=== PATIENT | female | born 1995 | race Two or more races ===

== ENCOUNTER 2023-01-30 14:00 | Inpatient (IN) | payer OTHER ==
[~2023-01-30] VITALS: Ht 160 cm; Wt 65.8 kg
[2023-02-18] MEDS ORDERED: PRENATAL TABLE1 EAC1 PO (00:36)
== END 2023-02-20 11:33 | disposition home or self-care (01) | DRG 807 ==
LOC: OB/GYN 02-08 14:00 → LDR 02-18 00:09 → OB/GYN 02-18 09:00
PROVIDERS: ADMIT Obstetrics & Gynecology Maternal & Fetal Medicine; ATTEND Obstetrics & Gynecology Maternal & Fetal Medicine
PROC: 10E0XZZ Delivery of Products of Conception, External Approach (ICD-10-PCS; principal; 2023-02-18)
PROC: 0KQM0ZZ Repair Perineum Muscle, Open Approach (ICD-10-PCS; 2023-02-18)
PROC: 0UQMXZZ Repair Vulva, External Approach (ICD-10-PCS; 2023-02-18)
PROC: 4A1HXCZ Monitoring of Products of Conception, Cardiac Rate, External Approach (ICD-10-PCS; 2023-02-18)
DX: O71.4 Obstetric high vaginal laceration alone (principal); Z37.0 Single live birth; O71.82 Other specified trauma to perineum and vulva; Z3A.41 41 weeks gestation of pregnancy; Z20.822 Contact with and (suspected) exposure to COVID-19

== ENCOUNTER 2023-02-09 10:35 | Outpatient (CLI) | payer OTHER | END 2023-02-09 11:37 | disposition home or self-care (01) | LOC: NST 10:35 | PROVIDERS: ATTEND Obstetrics & Gynecology | DX: Z34.83 Encounter for supervision of other normal pregnancy, third trimester (principal) ==

== ENCOUNTER 2023-02-13 14:02 | Outpatient (CLI) | payer OTHER | END 2023-02-13 15:00 | disposition home or self-care (01) | LOC: NST 14:02 | PROVIDERS: ATTEND Obstetrics & Gynecology | DX: Z34.83 Encounter for supervision of other normal pregnancy, third trimester (principal) ==

== ENCOUNTER 2025-07-02 13:15 | Inpatient (IN) | payer OTHER ==
[~2025-07-02] VITALS: Ht 160 cm; Wt 67.1 kg
[~2025-07-02 13:15] MED LIST: PRENATAL TABLE1 EAC1 PO
[2025-07-15 08:44] VITALS: BP 104/70
[2025-07-15] MEDS ORDERED: RINGERS SOLUTION,LACTATED 1,000 ML IV SCH (10:15)
[2025-07-15 10:43] LABS: URINE APPEARANCE Clear; URINE BILIRRUBIN Negative (NEGATIVE); URINE BLOOD Negative; URINE COLOR Dark Yellow; URINE GLUCOSE Negative (NEGATIVE); URINE KETONE Trace (NEGATIVE); URINE LEUKOCYTE Trace; URINE NITRATE Negative; URINE PROTEIN Trace (NEGATIVE); URINE UROBILINOGEN 1.0 E.U./dl
[2025-07-15 10:47] LABS: URINE BACTERIA 994.7 uL (0.0-1933); URINE EPITHELIAL CELLS 55.6 uL (0.0-38.8); URINE RBC 10.2 uL (0.0-20.8); URINE WBC 35.6 uL (0.0-23.2)
[2025-07-15 10:57] LABS: BASO % 0.4 % (0.1-1.2); EOS # 0.04 (0.04-0.54); EOS % 0.5 % (0.7-7.0); LYMPH # 1.55 (1.18-3.74); LYMPH % 20.4 % (19.3-53.1); MEAN PLATELET VOLUME 12.20 fl (9.4-12.4); MONO # 0.58 (0.24-0.82); MONO % 7.7 % (4.7-12.5); NEUT # 5.36 (1.56-6.13); NEUT % 70.7 % (34.0-71.1); RED CELL DISTRIBUTION WIDTH 15.7 % (11.6-14.4)
[2025-07-15] MEDS ORDERED: OXYTOCIN 500 ML IV SCH (11:00)
[2025-07-15 11:05] VITALS: BP 113/79
[2025-07-15 11:12] LABS: INR < 0.93
[2025-07-15 11:15] LABS: ALT/SGPT 14.0 U/L (12-78); AST/SGOT 13.0 U/L (15-37); BILIRUBIN TOTAL 0.35 mg/dL (0.3-1.2); BUN CREA RATIO 25.0 (7.0-25.0); CREATININE SERUM 0.36 mg/dL (0.55-1.02); GFR 213.11; GLOBULINA 3.8 G/DL (2.4-3.5); GLUCOSE FASTING 77.0 mg/dL (65-100); OSMOLALITY SERUM 279.0 MOSM/KG (275-295)
[2025-07-15 12:21] LABS: URINE CAST 0.29 uL (0.0-1.40); URINE MUCUS MODERATE
[2025-07-15 15:34] VITALS: BP 111/78
[2025-07-15] MEDS ORDERED: OXYTOCIN 20 UNITS/500ML RL PIGGYBAG IV ONE (17:05)
[2025-07-15] MEDS ORDERED: CHLORHEXIDINE GLUCONATE 120 ML BOTTLE TOP ONE ×2 (17:20→18:30)
[2025-07-15] MEDS ORDERED: ERYTHROMYCIN BASE OPHT 1GM EACH TUBE OP ONE (17:20)
[2025-07-15] MEDS ORDERED: OXYTOCIN 20 UNITS/1000ML RL PIGGYBAG IV ONE (17:20)
[2025-07-15] MEDS ORDERED: LIDOCAINE HCL 1% 10ML VIAL ONE (17:20)
[2025-07-15] MEDS ORDERED: OXYTOCIN 1,000 ML IV SCH (18:30)
[2025-07-15 22:15] VITALS: BP 100/64
[2025-07-16 00:45] VITALS: BP 100/67
[2025-07-16 08:48] VITALS: BP 115/76; O2SAT 97
[2025-07-16] MEDS ORDERED: PNV,CALCIUM 72/IRON/FOLIC ACID 1 TAB TABLET PO SCH (09:00)
[2025-07-16] MEDS ORDERED: DOCUSATE SODIUM 100MG CAP PO SCH (09:00)
[2025-07-16 19:19] VITALS: BP 111/77
[2025-07-17] VITALS: BP 102/64
[2025-07-17 07:07] LABS: hav igm Negative (Negative); hep b c Negative (Negative); hep b s ag Negative (Negative)
[2025-07-17 09:41] VITALS: BP 101/67
[2025-07-17 09:44] VITALS: BP 101/67
[2025-07-17 13:30] VITALS: BP 111/65
== END 2025-07-17 15:25 | disposition home or self-care (01) | DRG 807 ==
LOC: LDR 07-15 09:52 → OB/GYN 07-15 19:17 → LDR 07-19 13:15
PROVIDERS: Obstetrics & Gynecology Gynecology; ADMIT Obstetrics & Gynecology; ATTEND Obstetrics & Gynecology
PROC: 10E0XZZ Delivery of Products of Conception, External Approach (ICD-10-PCS; principal; 2025-07-15)
PROC: 0KQM0ZZ Repair Perineum Muscle, Open Approach (ICD-10-PCS; 2025-07-15)
PROC: 0UQMXZZ Repair Vulva, External Approach (ICD-10-PCS; 2025-07-15)
PROC: 4A1HXCZ Monitoring of Products of Conception, Cardiac Rate, External Approach (ICD-10-PCS; 2025-07-15)
DX: O70.1 Second degree perineal laceration during delivery (principal); O71.82 Other specified trauma to perineum and vulva; Z37.0 Single live birth; Z3A.39 39 weeks gestation of pregnancy